=== PATIENT | female | born 1990 | race Caucasian/White ===

== ENCOUNTER 2016-09-27 15:09 | Emergency (ER) | payer OTHER ==
[2016-09-27 15:33] VITALS: BP 114/77
--- NOTE | 2016-09-27 15:58 | UC ---
Knee Pain HPI - HPI Summary HPI Summary: pt reports that she was jumping over a fence 1 week ago and landed "funny" on her right knee. C/o right latera knee pain that "shoots" down right lateral lower leg intermittently. - History of Current Complaint Chief Complaint: UCLowerExtremity Stated Complaint: RT KNEE COMPLAINT Time Seen by Provider: 09/27/16 15:36 Hx Obtained From: Patient Hx Last Menstrual Period: 09/03/16 ?: No Onset/Duration: Gradual Onset, Lasting Days - 7 Severity Initially: Mild Severity Currently: Mild Character: Sharp, Dull Aggravating Factor(s): Movement - inconsistent, Prolonged Standing Alleviating Factor(s): Rest, Position Associated Signs And Symptoms: Positive: Negative Able to Bear Weight: Yes - Allergies/Home Medications Allergies/Adverse Reactions: Allergies Allergy/AdvReac Type Severity Reaction Status Date / Time Penicillins Allergy Intermediate Hives Verified 04/09/16 17:02 Home Medications: Home Medications Ibuprofen [Ibuprofen 200 MG] 800 mg PO Q6HR PRN 09/27/16 [History Confirmed ] PMH/Surg Hx/FS Hx/Imm Hx Previously Healthy: Yes - Surgical History Surgical History: Yes Surgery Procedure, Year, and Place: essure - Family History Known Family History: Positive: Other - positive for FMH for arthralgia Family History: no known cardio-vascular issues in family - Social History Alcohol Use: None Substance Use Type: None Smoking Status (MU): Never Smoked Tobacco Have You Smoked in the Last Year: No - Immunization History Most Recent Influenza Vaccination: none Hx Tetanus, Diphtheria Vaccination: Yes Vaccination Up to Date: Yes Review of Systems Constitutional: Negative Skin: Negative Eyes: Negative ENT: Negative Respiratory: Negative Cardiovascular: Negative Gastrointestinal: Negative, Abdominal Pain Genitourinary: Negative Motor: Negative Neurovascular: Negative Musculoskeletal: Arthralgia - right knee Neurological: Negative Psychological: Negative All Other Systems Reviewed And Are Negative: Yes Physical Exam Triage Information Reviewed: Yes Appearance: Well-Appearing Vital Signs: Initial Vital Signs Temp 98.2 F 09/27/16 15:24 Pulse 82 09/27/16 15:24 Resp 16 09/27/16 15:24 BP 114/77 09/27/16 15:24 Pulse Ox 100 09/27/16 15:24 Eye Exam: Normal ENT Exam: Normal Respiratory Exam: Other Respiratory: Positive: No respiratory distress Musculoskeletal Exam: Normal Musculoskeletal: Positive: Other: - pain with palpation to right lateral knee Neurological Exam: Normal Psychological Exam: Normal Skin Exam: Normal Knee Pain Course/Dx - Differential Dx/Diagnosis Differential Diagnosis/HQI/PQRI: Sprain, Strain, Tendonitis Provider Diagnoses: right knee sprain Discharge - Discharge Plan Condition: Stable Disposition: HOME Patient Education Materials: Knee Pain (ED), Arthralgia (ED) [place] [facility] [place] [facility] [place]] Ayo King MD [Medical Doctor] - No Primary Care Phys,NOPCP [Primary Care Provider] - Additional Instructions: Please establish care with a PCP provider as soon as possible. Also, I have provided you with a referral to an orthopedic provider if your symptoms do not improve or worsen.
== END 2016-09-27 16:11 | disposition home or self-care (01) ==
LOC: UCCORT 15:09
DX: S83.91XA Sprain of unspecified site of right knee, initial encounter (principal); X58.XXXA Exposure to other specified factors, initial encounter; Y93.9 Activity, unspecified; Y92.9 Unspecified place or not applicable; Z11.4 Encounter for screening for human immunodeficiency virus [HIV]; Z88.0 Allergy status to penicillin
CPT/HCPCS: 36415; 86703; 99211; G0463

== ENCOUNTER 2017-03-27 12:47 | Emergency (ER) | payer SELFPAY ==
[2017-03-27 15:45] VITALS: BP 119/70
--- NOTE | 2017-03-27 15:51 | ED ---
Upper Extremity Pain - HPI Summary HPI Summary: last night her left hand got slammed in a window. she has tenderness in the medial dorsal hand. No wrist or finger injury. - History of Current Complaint Chief Complaint: UCUpperExtremity Stated Complaint: LEFT HAND PAIN Time Seen by Provider: 03/27/17 15:41 Hx Obtained From: Patient Hx Last Menstrual Period: 03/12/17 Mechanism Of Injury: Blunt Trauma, Direct Blow Onset/Duration: Started Hours Ago Timing: Constant, Lasting Hours Severity Initially: Moderate Severity Currently: Moderate Pain Location: Hand Character: Dull, Aching Aggravating Factor(s): Movement, Twisting, Pulling Alleviating Factor(s): Rest, Ice Associated Signs & Symptoms: Positive: Swelling. Negative: Redness, Bruising, Weakness - Allergies/Home Medications Allergies/Adverse Reactions: Allergies Allergy/AdvReac Type Severity Reaction Status Date / Time Penicillins Allergy Intermediate Hives Verified 03/27/17 15:41 Home Medications: Home Medications Ibuprofen TAB* [Advil TAB*] 800 mg PO Q6H PRN 03/27/17 [History Confirmed ] PMH/Surg Hx/FS Hx/Imm Hx Previously Healthy: Yes - Surgical History Surgery Procedure, Year, and Place: essure Infectious Disease History: No Infectious Disease History: Denies: Hx Clostridium Difficile, Hx Hepatitis, Hx Human Immunodeficiency Virus (HIV), Hx of Known/Suspected MRSA, Hx Shingles, Hx Tuberculosis, Hx Known/ Suspected VRE, Hx Known/Suspected VRSA, History Other Infectious Disease, Traveled Outside the [place] in Last 30 Days - Family History Known Family History: Positive: Other - positive for FM for arthralgia Family History: no known cardio-vascular issues in family - Social History Occupation: Employed Full-time Alcohol Use: Occasionally Substance Use Type: Reports: None Smoking Status (MU): Never Smoked Tobacco Have You Smoked in the Last Year: No Review of Systems Musculoskeletal: Other - crush injury per HPI. All Other Systems Reviewed And Are Negative: Yes Physical Exam Triage Information Reviewed: Yes Vital Signs On Initial Exam: Initial Vitals Temp Pulse Resp BP Pulse Ox 98.4 F 74 16 119/70 100 03/27/17 15:38 03/27/17 15:38 03/27/17 15:38 03/27/17 15:38 03/27/17 15:38 Vital Signs Reviewed: Yes Appearance: Positive: Well-Appearing, No Pain Distress, Well-Nourished Skin: Positive: Warm, Skin Color Reflects Adequate Perfusion, Dry Head/Face: Positive: Normal Head/Face Inspection ENT: Positive: Normal ENT inspection Neck: Positive: Supple, Nontender, No Lymphadenopathy Respiratory/Lung Sounds: Positive: Clear to Auscultation Cardiovascular: Positive: Normal Abdomen Description: Positive: Nontender Musculoskeletal: Positive: Other - left 5th metatacarpal tenderness with mild swelling no deformity or bruising. no finger or wrist tenderness. Diagnostics - Vital Signs Vital Signs Temp Pulse Resp BP Pulse Ox 03/27/17 15:38 98.4 F 74 16 119/70 100 - Laboratory Lab Statement: Any lab studies that have been ordered have been reviewed, and results considered in the medical decision making process. Course/Dx - Diagnoses Differential Diagnosis/HQI/PQRI: Positive: Contusion, Fracture (Open), Laceration, Strain, Sprain Provider Diagnoses: Contusion of left hand Discharge - Discharge Plan Condition: Good Disposition: HOME Patient Education Materials: Contusion in Adults (ED) Forms: *Work Release Referrals: No Primary Care Phys,NOPCP [Primary Care Provider] -
--- NOTE | 2017-03-27 16:46 | RAD ---
INDICATION: Left hand injury COMPARISON: None TECHNIQUE: AP, lateral, and oblique views were obtained. FINDINGS: The bony structures, joint spaces, and soft tissues are normal for age. IMPRESSION: NEGATIVE EXAMINATION.
== END 2017-03-27 17:07 | disposition home or self-care (01) ==
LOC: UCCORT 12:47
DX: S60.222A Contusion of left hand, initial encounter (principal); W23.0XXA Caught, crushed, jammed, or pinched between moving objects, initial encounter; Y92.9 Unspecified place or not applicable
CPT/HCPCS: 99212; G0463

== ENCOUNTER 2017-09-04 09:51 | Emergency (ER) | payer SELFPAY ==
[2017-09-04 11:12] VITALS: BP 124/72
--- NOTE | 2017-09-04 12:52 | UC ---
Throat Pain/Nasal Rodrick HPI - HPI Summary HPI Summary: pt states she awoke with some swelling to her R neck yesterday am. it is slighlty uncomfortable. No fever, sore throat or dental pain. - History of Current Complaint Chief Complaint: YUKIkin Stated Complaint: SKIN COMPLAINT Time Seen by Provider: 09/04/17 12:38 Hx Obtained From: Patient Hx Last Menstrual Period: 08/13/17 ?: No Onset/Duration: Sudden Onset Pain Intensity: 5 Associated Signs & Symptoms: Negative: Dysphagia, FB Sensation, Drooling, Fever - Epiglottits Risk Factors Epiglottis Risk Factors: Negative - Allergies/Home Medications Allergies/Adverse Reactions: Allergies Allergy/AdvReac Type Severity Reaction Status Date / Time Penicillins Allergy Hives Verified 09/04/17 11:04 PMH/Surg Hx/FS Hx/Imm Hx - Additional Past Medical History Additional PMH: Healthy Previously Healthy: Yes - Surgical History Surgical History: Yes Surgery Procedure, Year, and Place: essure - Family History Known Family History: Positive: Other - positive for FM for arthralgia Family History: no known cardio-vascular issues in family - Social History Lives: With Family Alcohol Use: Occasionally Substance Use Type: None Smoking Status (MU): Never Smoked Tobacco Have You Smoked in the Last Year: No - Immunization History Most Recent Influenza Vaccination: Not the 2016/2017 Season Hx Tetanus, Diphtheria Vaccination: Yes Vaccination Up to Date: Yes Review of Systems Constitutional: Negative Skin: Negative Eyes: Negative ENT: Other - swelling R neck Respiratory: Negative Cardiovascular: Negative Gastrointestinal: Negative Genitourinary: Negative Motor: Negative Neurovascular: Negative Musculoskeletal: Negative Neurological: Negative Psychological: Negative Is Patient Immunocompromised?: No All Other Systems Reviewed And Are Negative: Yes Physical Exam Triage Information Reviewed: Yes Appearance: Well-Appearing Vital Signs: Initial Vital Signs Temp 97.9 F 09/04/17 11:05 Pulse 69 09/04/17 11:05 Resp 18 09/04/17 11:05 BP 124/72 09/04/17 11:05 Pulse Ox 98 09/04/17 11:05 Vital Signs Reviewed: Yes Eyes: Positive: Conjunctiva Clear ENT: Positive: Pharynx normal, TMs normal, Other - R submandibular area with mild swelling, corresponding salivary gland is tender and swollen-no overt stone palpated.. Negative: Nasal congestion, Nasal drainage Dental: Positive: Gross Decay/Caries @. Negative: Abscess @ Neck: Positive: Supple, Nontender, No Lymphadenopathy Respiratory: Positive: Lungs clear, Normal breath sounds Cardiovascular: Positive: RRR, No Murmur Abdomen Description: Positive: Nontender, No Organomegaly, Soft Bowel Sounds: Positive: Present Musculoskeletal: Positive: No Edema Neurological: Positive: Alert Psychological: Positive: Normal Response To Family, Age Appropriate Behavior Skin Exam: Normal Throat Pain/Nasal Course/Dx - Course Course Of Treatment: exam c/w R submandibular sialoadenitis. will tx clindamycin since pcn allergic and ent f/u. pt advised will give referal to Dr Cortez, she declined citing they use Dr Kevin and she wants to go there. No ludwigs angina. - Differential Dx/Diagnosis Provider Diagnoses: R submandibular sialoadenitis Discharge - Discharge Plan Condition: Stable Disposition: HOME Prescriptions: Clindamycin Cap(NF) [Clindamycin Cap 300 mg Cap(NF)] 300 mg PO TID 10 Days #30 cap Patient Education Materials: Sialoadenitis (ED) Referrals: Juan Manuel Kevin MD [Medical Doctor] - 2 Days
== END 2017-09-04 13:00 | disposition home or self-care (01) ==
LOC: UCCORT 09:51
DX: K11.20 Sialoadenitis, unspecified (principal); Z88.0 Allergy status to penicillin
CPT/HCPCS: 99211; G0463

== ENCOUNTER 2017-10-26 17:59 | Emergency (ER) | payer OTHER ==
[2017-10-26 18:36] VITALS: BP 125/74
--- NOTE | 2017-10-26 19:09 | UC ---
Upper Extremity HPI - HPI Summary HPI Summary: States she has been feeling tingling and numbness on right wrist and all fingers for several days, she works in [employer] and lifts weights every day. Denies sprain, fall or any trauma she can remember. Numbness is worse upon awakening and when she flexes right hand, sometimes with shooting pain. Pain decreases as she changes posture. Denies shoulder or elbow pain. - History of Current Complaint Chief Complaint: UCUpperExtremity Stated Complaint: RIGHT WRIST/HAND NUMBNESS/TINGLING Time Seen by Provider: 10/26/17 18:44 Hx Obtained From: Patient Hx Last Menstrual Period: essure ?: No Onset/Duration: Gradual Onset, Lasting Days Severity Initially: Moderate Severity Currently: Moderate Pain Intensity: 5 Location Of Pain: Is Discrete @ - right wrist Character: Sharp Aggravating Factor(s): Movement, Flexion Alleviating Factor(s): Rest Associated Signs And Symptoms: Positive: Negative - Risk Factors Non-Orthopedic Risk Factor: Negative DVT Risk Factors: Negative Septic Arthritis Risk Factor: Negative Compartment Syndrome Risk Factors: Paresthesias - Allergies/Home Medications Allergies/Adverse Reactions: Allergies Allergy/AdvReac Type Severity Reaction Status Date / Time Penicillins Allergy Hives Verified 10/26/17 18:37 PMH/Surg Hx/FS Hx/Imm Hx Previously Healthy: Yes - Surgical History Surgical History: Yes [facility] - Family History Known Family History: Positive: Other - positive for FMH for arthralgia Family History: no known cardio-vascular issues in family - Social History Alcohol Use: Occasionally Substance Use Type: None Smoking Status (MU): Never Smoked Tobacco Have You Smoked in the Last Year: No - Immunization History Most Recent Influenza Vaccination: Not the 2016/2017 Season Hx Tetanus, Diphtheria Vaccination: Yes Vaccination Up to Date: Yes Review of Systems Constitutional: Negative Musculoskeletal: Arthralgia All Other Systems Reviewed And Are Negative: Yes Physical Exam Triage Information Reviewed: Yes Appearance: Well-Appearing, No Pain Distress, Well-Nourished Vital Signs: Initial Vital Signs Temp 97.6 F 10/26/17 18:33 Pulse 65 10/26/17 18:33 Resp 16 10/26/17 18:33 BP 125/74 10/26/17 18:33 Pulse Ox 100 10/26/17 18:33 Vital Signs Reviewed: Yes Eyes: Positive: Conjunctiva Clear ENT: Positive: Hearing grossly normal Neck: Positive: Supple, Nontender Respiratory: Positive: Chest non-tender Cardiovascular: Positive: Pulses Normal, Brisk Capillary Refill Musculoskeletal: Positive: Strength Intact, ROM Intact, No Edema, Other: - ulnar and radial pulses present, capillary refill less 2 sec, no distal edema. Tinel positive. Phalen positive. Upper Extremity Course/Dx - Course Course Of Treatment: start wrist splint and gabapentin as prescribed. Continue ibuprofen as needed. Referral to hand ortho. F/u PCP - Differential Dx/Diagnosis Provider Diagnoses: carpal tunnel syndrome right hand Discharge - Sign-Out/Discharge Documenting (check all that apply): Discharge - Discharge Plan Condition: Stable Disposition: HOME Prescriptions: Gabapentin CAP(*) [Neurontin 100 mg CAP(*)] 100 mg PO TID #30 cap Patient Education Materials: Gabapentin (By mouth), Paresthesia (ED) Forms: *Work Release Referrals: [facility] – [place] [place] [facility]FERR[facility] [Outside] Ayo King MD [Medical Doctor] - No Primary Care Phys,NOPCP [Primary Care Provider] - Additional Instructions: wear wrist splint every night, continue ibuprofen and gabapentin as prescribed. F.u with PCP - Billing Disposition and Condition Condition: STABLE Disposition: HOME
== END 2017-10-26 19:09 | disposition home or self-care (01) ==
LOC: UCCORT 17:59
DX: G56.01 Carpal tunnel syndrome, right upper limb (principal); Z88.0 Allergy status to penicillin
CPT/HCPCS: 99213; G0463

== ENCOUNTER 2018-07-01 07:55 | Day surgery (SDC) | payer OTHER ==
--- NOTE | 2018-06-23 03:04 | HP ---
PREOPERATIVE HISTORY AND PHYSICAL: DATE OF ADMISSION: 07/01/18. DATE OF OFFICE VISIT/ENCOUNTER: 06/12/18. ATTENDING SURGEON: Bee Gifford MD. * (DICTATED BY MAYCO GALAVIZ) PROCEDURE: Right wrist carpal tunnel release. CHIEF COMPLAINT: Numbness and tingling, right hand. HISTORY OF PRESENT ILLNESS: This is a 27-year-old female, who has had numbness and tingling in her right hand since October of 2017. 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 She had a nerve conduction study that was negative for any nerve compression, but clinically she presents with carpal tunnel syndrome. She has pain and numbness and tingling in the median nerve distribution. She was given a wrist brace and also has had a cortisone injection for this problem; however, her symptoms persist. She has now consented to proceed with surgical intervention for this problem. PAST MEDICAL HISTORY: Unremarkable. PAST SURGICAL HISTORY: Essure placement. CURRENT MEDICATIONS: None. ALLERGIES: PENICILLIN causes hives. FAMILY MEDICAL HISTORY: Rheumatoid arthritis. 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 She is a current smoker. She smokes a pack every 1 to 2 days and has done so for the past 3 months. She denies recreational drug use. She drinks alcohol on special occasion. REVIEW OF SYSTEMS: Negative for general, cephalic, cardiovascular, respiratory , GI, , other musculoskeletal, integumentary, endocrine, neurologic, and hematologic symptoms. Infectious disease is negative for history of MRSA, hepatitis C, HIV. PHYSICAL EXAMINATION GENERAL: Well-developed, well-nourished, 27-year-old female, in no acute distress. VITAL SIGNS: Height 5 feet 7 inches, weight 192 pounds, pulse rate 86, blood pressure 122/80. HEENT: Normocephalic, atraumatic. Pupils are equal, round, and reactive to light and accommodation. Extraocular movements are intact. Throat is clear. NECK: Supple. No palpable lymph nodes. PULMONARY: Lungs are clear to auscultation bilaterally. No wheezes, rales or rhonchi. CARDIOVASCULAR: Regular rate and rhythm. S1, S2. No murmurs, rubs or gallops. No edema. ABDOMEN: Positive bowel sounds, soft, nontender. NEUROLOGIC: Alert and oriented x3. Cranial nerves II through XII are intact. MUSCULOSKELETAL: On exam of her right hand, there is no visible swelling, deformity or atrophy of any musculature. She has some tenderness to palpation in the volar aspect of the wrist. She has a positive Tinel's at the wrist on the right, negative Tinel's at the elbow. She reports some slight decreased sensation to light touch in the median nerve distribution, right hand. EMG nerve conduction study test negative for any nerve compression. IMPRESSION: Clinical presentation of right carpal tunnel syndrome. PLAN/RECOMMENDATIONS: The patient is scheduled to undergo a right wrist carpal tunnel release with Dr. Gifford on 07/01/18. She will return to the office 10 days postop for followup and suture removal. A prescription for Ultracet was e- scribed to the patient's pharmacy for postoperative pain management. MAYCO GALAVIZ [id number]/[facility] #: [id number] PENNY
[~2018-07-01 07:55] MED LIST: Buffered Lidocaine 0.9% SYRIN* 5 ML/SYR SYRINGE INTRADERM ONE; Lactated Ringers 1000 ML Bag* 1,000 ML IV SCH; Lidocaine 1% INJ* 10 MG/ML 30 ML SDV ONE; Naloxone* 0.4 MG/ML 1 ML VIAL IV PRN
[2018-07-01] MEDS ORDERED: fentaNYL* 50 MCG/ML 2 ML VIAL (100 MCG VIAL) ONE (08:50)
[2018-07-01] MEDS ORDERED: Propofol* 10 MG/ML 20 ML BTL ONE (08:51)
[2018-07-01] MEDS ORDERED: Lidocaine 2% PF * 5 ML VIAL ONE (08:51)
[2018-07-01] MEDS ORDERED: traMADol TAB* 50 MG ONE (09:41)
[2018-07-01] MEDS ORDERED: Ibuprofen TAB* 600 MG ONE (09:42)
[2018-07-01 09:47] VITALS: BP 129/70
--- NOTE | 2018-07-01 13:51 | OP ---
DATE OF OPERATION: 07/01/18 [facility] DATE OF : 89 SURGEON: Bee Gifford MD SUPERVISOR CUTTING DEPARTMENT: MAYCO Fajardo. ANESTHESIA: Local MAC. PRE-OP DIAGNOSIS: Right carpal tunnel syndrome. POST-OP DIAGNOSIS: Right carpal tunnel syndrome. OPERATIVE PROCEDURE: Right carpal tunnel release. ESTIMATED BLOOD LOSS: Zero. TOURNIQUET TIME: Approximately 5 minutes. INDICATIONS FOR PROCEDURE: Marlena is a 27-year-old female with numbness and tingling in the median nerve distribution of her right hand. She presents for right carpal tunnel release. DESCRIPTION OF PROCEDURE: The patient was brought to the operating room, was given a sedation anesthetic and a local infiltration with 10 cc of 1% plain lidocaine in the palm of her right hand. The skin of her right hand and forearm was prepped and draped in the usual sterile fashion. The hand and forearm were exsanguinated and the tourniquet elevated to 250 mmHg. A longitudinal incision was made in the palm in line with the ring finger. We dissected through the subcutaneous tissue down to the transverse carpal ligament. The ligament was divided sharply with the knife and then more proximally with the scissors. The nerve was dissected free from the surrounding tissue and there was an area of moderate compression at the mid portion of the ligament. The wound was irrigated and the skin edges were reapproximated with 4-0 nylon suture. The wound was dressed with Xeroform, 4x4 , Webril and an Tereso wrap. The patient tolerated the procedure well and was brought to the recovery room in good condition. [id number]/[facility] #: [id number] [facility]
== END 2018-07-01 09:53 | disposition home or self-care (01) ==
LOC: OREAST 07:55
PROVIDERS: ATTEND Orthopaedic Surgery
DX: G56.01 Carpal tunnel syndrome, right upper limb (principal); Z72.0 Tobacco use
CPT/HCPCS: 81025; A9270-GY; J2704; J3010

== ENCOUNTER 2019-02-12 09:36 | Emergency (ER) | payer OTHER ==
[2019-02-12 10:02] VITALS: BP 112/70
--- NOTE | 2019-02-12 10:27 | UC ---
Knee Pain HPI - HPI Summary HPI Summary: 28 yo female with right knee pain x 2 weeks It has been locking up and she needs to forcefully extend it It has been "popping" It has been buckling denies any hx of prior LBP - History of Current Complaint Chief Complaint: UCLowerExtremity Stated Complaint: RIGHT KNEE PAIN Time Seen by Provider: 02/12/19 10:20 Hx Obtained From: Patient Hx Last Menstrual Period: 01/21/19 Onset/Duration: Gradual Onset, Lasting Weeks Severity Initially: Mild Severity Currently: Moderate Pain Intensity: 7 Pain Scale Used: 0-10 Numeric Character: Sharp, Aching Aggravating Factor(s): Movement, Weight Bearing Alleviating Factor(s): Rest Associated Signs And Symptoms: Positive: Negative Able to Bear Weight: Yes - Allergies/Home Medications Allergies/Adverse Reactions: Allergies Allergy/AdvReac Type Severity Reaction Status Date / Time Penicillins Allergy Hives Verified 02/12/19 09:57 1 FOOD ALLERGY UNSURE OF NAME Allergy Hives Uncoded 02/12/19 09:57 Home Medications: Home Medications NK [No Home Medications Reported] 02/12/19 [History Confirmed 02/12/19] PMH/Surg Hx/FS Hx/Imm Hx Previously Healthy: Yes - Surgical History Surgical History: Yes Surgery Procedure, Year, and Place: [facility]. CTS for right hand - Family History Known Family History: Positive: Other - positive for FMH for arthralgia, Non- Contributory Family History: no known cardio-vascular issues in family - Social History Alcohol Use: Occasionally Substance Use Type: None Smoking Status (MU): Heavy Every Day Tobacco Smoker Amount Used/How Often: 1 PACK PER 2-3 DAYS Have You Smoked in the Last Year: Yes - Immunization History Most Recent Influenza Vaccination: Not the 2017/2017 Season Hx Tetanus, Diphtheria Vaccination: Yes Vaccination Up to Date: Yes Review of Systems All Other Systems Reviewed And Are Negative: Yes Constitutional: Positive: Negative Skin: Positive: Negative Eyes: Positive: Negative ENT: Positive: Negative Respiratory: Positive: Negative Cardiovascular: Positive: Negative Gastrointestinal: Positive: Negative Genitourinary: Positive: Negative Motor: Positive: Negative Neurovascular: Positive: Negative Musculoskeletal: Positive: Arthralgia - right knee Neurological: Positive: Negative Psychological: Positive: Negative Physical Exam Triage Information Reviewed: Yes Appearance: Well-Appearing, No Pain Distress, Well-Nourished Vital Signs: Initial Vital Signs Temp 98.0 F 02/12/19 09:58 Pulse 74 02/12/19 09:58 Resp 15 02/12/19 09:58 BP 112/70 02/12/19 09:58 Pulse Ox 100 02/12/19 09:58 Vital Signs Reviewed: Yes Eyes: Positive: Conjunctiva Clear ENT: Positive: Hearing grossly normal. Negative: Nasal congestion, Nasal drainage, Trismus, Muffled voice, Hoarse voice Neck: Positive: Supple, Nontender Respiratory: Positive: Lungs clear, Normal breath sounds, No respiratory distress Cardiovascular: Positive: RRR, No Murmur Musculoskeletal: Positive: ROM Intact - right knee, No Edema, Other: - Right knee- FROM, + crepitus, mild patellar grind test, stable joint, no effusion Neurological: Positive: Alert Psychological Exam: Normal Skin Exam: Normal Diagnostics - Radiology No standard instances Radiology Interpretation Completed By: Radiologist Summary of Radiographic Findings: no fx Knee Pain Course/Dx - Differential Dx/Diagnosis Provider Diagnosis: Tear of meniscus of right knee Discharge - Sign-Out/Discharge Documenting (check all that apply): Patient Departure All imaging exams completed and their final reports reviewed: Yes - Discharge Plan Condition: Stable Disposition: AGAINST MEDICAL ADVICE Patient Education Materials: Meniscus Tear (ED), Knee Immobilizer (ED) Forms: *Gen. Provider Communication Referrals: Ayo King MD [Medical Doctor] - As Soon As Possible Additional Instructions: your xr was normal I am concerned you may have torn some cartilage in your knee ice twice daily advil or aleve - Billing Disposition and Condition Condition: STABLE Disposition: Against Medical Advice
== END 2019-02-12 11:21 | disposition home or self-care (01) ==
LOC: UCCORT 09:36
DX: S83.206A Unspecified tear of unspecified meniscus, current injury, right knee, initial encounter (principal); X58.XXXA Exposure to other specified factors, initial encounter; Y92.9 Unspecified place or not applicable; F17.210 Nicotine dependence, cigarettes, uncomplicated
CPT/HCPCS: 99212; G0463

== ENCOUNTER 2019-03-18 10:25 | Emergency (ER) | payer OTHER ==
--- OUTSIDE RECORDS SUMMARY | 2019-03-18 10:32 | XMS REPORT | Continuity of Care Document ---
:1990 External Reference #:[id number] Demographics Address [address] [place] [address] Home Phone [phone] Mobile Phone [phone] Email Address Preferred Language en Marital Status Not or Sikh Affiliation Unknown Race White Ethnic Group Not or Author Name Prema Gallegos NP Address [address] [place] [id number] Care Team Providers Name Role Phone No Care Team Information Banking Paralegal Unavailable Problems Description No Active Problems Social History Type Date Description Comments Sex Female Tobacco Use Reviewed: 02/17/19 Never Smoked Cigars Tobacco Use Reviewed: 02/17/19 Never Smoked A Pipe Smoking Status Reviewed: 02/17/19 Never Smoked A Pipe Tobacco Use Reviewed: 02/17/19 Never Used Smokeless Tobacco ETOH Use Currently consumes alcohol Recreational Drug Use Denies Drug Use Tobacco Use Reviewed: 02/17/19 Light tobacco smoker (10 or fewer cigarettes/day) Recreational Drug Use Teaching provided regarding Naloxone/Narcan Training Available At [facility] Tattoo/Piercing Tattoo [place] Allergies, Adverse Reactions, Alerts Active Allergies Reaction Severity Comments Date Penicillin 07/23/2017 Medications Active Medications SIG Qnty Indications Ordering Provider Date Flagyl four tabs by 4tabs A59.01 Prema Gallegos NP 02/17/2019 500mg Tablets mouth x 1 dose History Medications No Active Medications Unknown 02/17/2019 - 02/17/2019 Medications Administered in Office Medication SIG Qnty Indications Ordering Provider Date J-Azithromycin, 500MG, Qnty 2 Prema Gallegos NP 02/20/2018 Injection J-Azithromycin, 500MG, Qnty 2 Prema Gallegos NP 07/23/2017 Injection Immunizations Description No Information Available Vital Signs Date Vital Result Comment 02/17/2019 10:08am BP Systolic 112 mmHg BP Diastolic 72 mmHg Height 67 inches 5'7" Weight 197.00 lb BMI (Body Mass Index) 30.9 kg/m2 02/20/2018 10:41am BP Systolic 118 mmHg BP Diastolic 76 mmHg Height 67 inches 5'7" Weight 199.00 lb BMI (Body Mass Index) 31.2 kg/m2 Results Test Date Facility Test Result H/L Range Note Wet Prep.... 02/17/2019 [facility] WBC Smear many Clue Cells Vag Fluid Wet Prep 0 [place] Wet Prep 0 Lactobacillus Wet Prep few Whiff Wet Prep neg. Bacteria Wet Prep n/a PH Wet Prep 7.5 Misc Other Test no trich seen Laboratory test finding 02/17/2019 [facility] Hep C Rapid Test Nonreactive Laboratory test finding 02/17/2019 [facility] HIV Rapid... 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 mode of transmiss Z11.4 Encounter for screening for human immunodeficiency virus Z11.59 Encounter for screening for other viral diseases A59.01 Trichomonal vulvovaginitis Assessments Date Code Description Provider 02/17/2019 Z11.3 Encounter for screening for infections with a Prema Gallegos NP predominantly sexual mode of transmission 02/17/2019 Z11.4 Encounter for screening for human Prema Gallegos NP immunodeficiency virus [HIV] 02/17/2019 Z11.59 Encounter for screening for other viral diseases Prema Gallegos NP 02/17/2019 A59.01 Trichomonal vulvovaginitis Prema Gallegos NP Plan of Treatment 02/17/2019 - Prema Gallegos NPZ11.3 Encounter for screening for infections with a predominantly sexual mode of transmissionComments:Reviewed STD risks and prevention with patient. Patient states understanding. Condoms given to patient.Z11.4 Encounter for screening for human immunodeficiency virus [HIV] Z11.59 Encounter for screening for other viral wzdhjqulS55.01 Trichomonal vulvovaginitisNew Medication:Flagyl 500 mg - four tabs by mouth x 1 doseComments :Wet mount shows motile trichomonas. Reviewed natural course, treatment, transmission and prevention with patient who states understanding. Rx Metronidazole- reviewed use of, side effects and precautions of use with patient who states understanding. Abstain from ic for at least one week after you and partners are treated. Use condoms consistently to prevent STDs.Follow up :prn Functional Status Description No Information Available Mental Status Description No Information Available Referrals Description No Information Available
--- OUTSIDE RECORDS SUMMARY | 2019-03-18 10:32 | XMS REPORT | Continuity of Care Document ---
:1990 External Reference #:[id number] Demographics Address [address] [place] [address] Mobile Phone [phone] Email Address Preferred Language en Marital Status Not or Sikh Affiliation Unknown Race White Ethnic Group Not or Author Name Reyes Barth Care Team Providers Name Role Phone Patient's Choice Primary Care Physician Unavailable Payers Date Identification Numbers Payment Provider Subscriber Policy Number: [id number] Yrn Diaz Group Number: [id number] [address] Group Name: Medicaid [place] [address] PayID: [id number] Onset: 2017 Policy Number: [id number] Ryan Marlena Diaz Group Name: [phone] Fax [address] [address] PayID: [id number] [address] Family History Date Family Member(s) Observation Comments General Rheumatoid Arthritis Social History Type Date Description Comments Sex Unknown Marital Status Single Lives With Children Occupation Unemployed ETOH Use Occasionally consumes alcohol Tobacco Use Start: Unknown Patient is a current smoker, smokes every day Smoking Status Reviewed: 09/05/18 Patient is a current smoker, smokes every day Exercise Type/Frequency Exercises sporadically Allergies, Adverse Reactions, Alerts Active Allergies Reaction Severity Comments Date Penicillins 10/30/2017 Medications Active Medications SIG Qnty Indications Ordering Provider Date No Active Medications Unknown 08/14/2018 History Medications Ultracet 1 tab by mouth 15tabs Bee Gifford, 06/22/2018 - 37.5-325mg Tablets every 4-6 M.D. 08/13/2018 hours as needed pain No Active Medications Unknown 12/23/2017 - 06/22/2018 Methylprednisolone take as 21units Bee Gifford, 10/30/2017 - 4mg TBPK directed. M.D. 12/22/2017 Gabapentin Unknown - 100mg Capsules 12/22/2017 Medications Administered in Office Medication SIG Qnty Indications Ordering Provider Date Depomedrol 40MG Bee Gifford M.D. 12/23/2017 Injection Depomedrol 40MG Bee Gifford M.D. 12/23/2017 Injection Vital Signs Date Vital Result Comment 02/16/2019 3:01pm Height 67 inches 5'7" Weight 200.00 lb Heart Rate 84 /min BP Systolic Sitting 116 mmHg BP Diastolic Sitting 86 mmHg Respiratory Rate 16 /min Body Temperature 100.0 F Pain Level 7 O2 % BldC Oximetry 99 % BMI (Body Mass Index) 31.3 kg/m2 09/05/2018 11:05am Height 67 inches 5'7" Weight 192.00 lb Heart Rate 74 /min BP Systolic Sitting 142 mmHg BP Diastolic Sitting 80 mmHg Pain Level 9 BMI (Body Mass Index) 30.1 kg/m2 08/14/2018 1:29pm Height 67 inches 5'7" Weight 192.00 lb Heart Rate 82 /min Respiratory Rate 16 /min Body Temperature 98.1 F Pain Level 3 BMI (Body Mass Index) 30.1 kg/m2 07/16/2018 10:21am Height 67 inches 5'7" Heart Rate 76 /min BP Systolic Sitting 126 mmHg BP Diastolic Sitting 90 mmHg Respiratory Rate 16 /min Body Temperature 98.9 F Pain Level 4 06/12/2018 1:17pm Height 67 inches 5'7" Heart Rate 86 /min BP Systolic 122 mmHg BP Diastolic 80 mmHg Respiratory Rate 17 /min Pain Level 8 01/22/2018 2:37pm Height 67 inches 5'7" Weight 192.00 lb Heart Rate 72 /min BP Systolic 108 mmHg BP Diastolic 60 mmHg Respiratory Rate 12 /min Body Temperature 98.9 F Pain Level 0 BMI (Body Mass Index) 30.1 kg/m2 12/23/2017 10:47am Height 67 inches 5'7" Weight 200.00 lb BP Systolic 124 mmHg BP Diastolic 76 mmHg Respiratory Rate 17 /min Pain Level 6 BMI (Body Mass Index) 31.3 kg/m2 11/20/2017 9:26am Height 67 inches 5'7" Heart Rate 61 /min BP Systolic 128 mmHg BP Diastolic 80 mmHg Respiratory Rate 16 /min Body Temperature 97.8 F Pain Level 5 10/30/2017 9:16am Height 67 inches 5'7" Weight 198.00 lb Heart Rate 68 /min BP Systolic 122 mmHg BP Diastolic 68 mmHg Respiratory Rate 12 /min Body Temperature 97.6 F Pain Level 3 BMI (Body Mass Index) 31.0 kg/m2 Procedures Date Code Description Status 09/05/2018 00847 Rad Exam; Wrist, Comp, Min 3 Views Completed 07/01/2018 73774 Carpal Tunnel Release Completed 07/01/2018 49064 Carpal Tunnel Release Completed 12/23/2017 18535 Injection, Carpal Tunnel Completed Encounters Type Date Location Provider Dx Diagnosis Office Visit 02/16/2019 Orthopedic López Mccollum, M22.2x1 Patellofemoral 3:00p [facility] MD disorders, right AT [place] knee Office Visit 06/12/2018 Orthopedic Bee Gifford G56.01 Carpal tunnel 1:15p [facility] syndrome, right C.M.A. upper limb Office Visit 01/22/2018 Maylin Gifford G56.01 Carpal tunnel 2:30p [facility] syndrome, right C.M.A. upper limb M65.831 Other synovitis and tenosynovitis, right forearm Office Visit 12/23/2017 10:45a Orthopedic Bee Gifford G56.01 Carpal tunnel [facility] syndrome, right C.M.A. upper limb M65.831 Other synovitis and tenosynovitis, right forearm Office Visit 11/20/2017 9:15a Orthopedic Bee Gifford G56.01 Carpal tunnel [facility] syndrome, right C.M.A. upper limb G56.01 Carpal tunnel syndrome, right upper limb M65.831 Other synovitis and tenosynovitis, right forearm M65.831 Other synovitis and tenosynovitis, right forearm G56.01 Carpal tunnel syndrome, right upper limb M65.831 Other synovitis and tenosynovitis, right forearm Plan of Treatment Future Appointment(s):04/20/2019 9:15 am - López Mccollum MD at [facility] AT [place]/05/2019 - López Mccollum, MDM22.2x1 Patellofemoral disorders, right kneeNew Therapy:Physical TherapyComments:use braceFollow up:Follow up: 2 months
[2019-03-18 10:38] VITALS: BP 122/72
--- NOTE | 2019-03-18 10:52 | UC ---
Throat Pain/Nasal Rodrick HPI - HPI Summary HPI Summary: sore throat x 2 days pain is 5 out of 10 , no cold symptoms no cough , no runny nose, no fever , no chills left side ear pain and painful lymphnode - History of Current Complaint Chief Complaint: UCEar Stated Complaint: LEFT EAR PAIN Time Seen by Provider: 03/18/19 10:30 Hx Obtained From: Patient Hx Last Menstrual Period: 02/19/19 ?: No Onset/Duration: Gradual Onset, Lasting Days - 2, Still Present Severity: Moderate Pain Intensity: 10 Cough: None Associated Signs & Symptoms: Negative: FB Sensation, Drooling, Wheezing, Hoarseness, Sinus Discomfort, Nasal Discharge, Fever, Vomiting, Rash - Allergies/Home Medications Allergies/Adverse Reactions: Allergies Allergy/AdvReac Type Severity Reaction Status Date / Time Penicillins Allergy Hives Verified 03/18/19 10:38 1 FOOD ALLERGY UNSURE OF NAME Allergy Hives Uncoded 03/18/19 10:38 Home Medications: Home Medications Acetaminophen [Tylenol Extra Strength] 3 tab PO ONCE 03/18/19 [History Confirmed 03/18/19] PMH/Surg Hx/FS Hx/Imm Hx Previously Healthy: Yes - Surgical History Surgical History: Yes Surgery Procedure, Year, and Place: [facility]. CTS for right hand - Family History Known Family History: Positive: Other - positive for [facility] for arthralgia, Non- Contributory Family History: no known cardio-vascular issues in family - Social History Alcohol Use: Occasionally Substance Use Type: Marijuana Substance Use Comment - Amount & Last Used: occasional Smoking Status (MU): Heavy Every Day Tobacco Smoker Amount Used/How Often: 1/2 ppd Have You Smoked in the Last Year: Yes - Immunization History Most Recent Influenza Vaccination: Not the 2017/2017 Season Hx Tetanus, Diphtheria Vaccination: Yes Vaccination Up to Date: Yes Review of Systems All Other Systems Reviewed And Are Negative: Yes Constitutional: Positive: Negative Skin: Positive: Negative Eyes: Positive: Negative ENT: Positive: Sore Throat, Ear Ache Respiratory: Positive: Negative Is Patient Immunocompromised?: No Physical Exam Triage Information Reviewed: Yes Appearance: Well-Appearing, No Pain Distress, Well-Nourished Vital Signs: Initial Vital Signs Temp 98.7 F 03/18/19 10:32 Pulse 73 03/18/19 10:32 Resp 16 03/18/19 10:32 BP 122/72 03/18/19 10:32 Pulse Ox 100 03/18/19 10:32 Vital Signs Reviewed: Yes Eye Exam: Normal Eyes: Positive: Conjunctiva Clear ENT: Positive: Normal ENT inspection, Hearing grossly normal, Pharyngeal erythema, TMs normal. Negative: TM bulging, TM dull, TM red Neck: Positive: Supple, Tenderness @, Enlarged Nodes @ - left anterior cervical Respiratory Exam: Normal Respiratory: Positive: Chest non-tender, Lungs clear, Normal breath sounds Cardiovascular: Positive: RRR, No Murmur, Pulses Normal Skin Exam: Normal Throat Pain/Nasal Course/Dx - Differential Dx/Diagnosis Provider Diagnosis: Pharyngitis Discharge ED - Sign-Out/Discharge Documenting (check all that apply): Patient Departure All imaging exams completed and their final reports reviewed: No Studies - Discharge Plan Condition: Stable Disposition: HOME Prescriptions: Naproxen [Naprosyn 500 mg tab] 500 mg PO BID #20 tablet Patient Education Materials: Pharyngitis (ED) Referrals: Shon Winston MD [Primary Care Provider] - If Needed - Billing Disposition and Condition Condition: STABLE Disposition: Home
== END 2019-03-18 10:53 | disposition home or self-care (01) ==
LOC: UCCORT 10:25
DX: J02.9 Acute pharyngitis, unspecified (principal); Z88.0 Allergy status to penicillin; F17.210 Nicotine dependence, cigarettes, uncomplicated
CPT/HCPCS: 99212; G0463

== ENCOUNTER → 2019-07-14 07:07 | Day surgery (SDC) | payer MEDICAID ==
[~2019-07-14 07:07] MED LIST changes: -Buffered Lidocaine 0.9% SYRIN* 5 ML/SYR SYRINGE INTRADERM ONE; +Buffered Lidocaine 1% SYRIN* 1 ML/SYRINGE INTRADERM ONE; +Bupivacaine 0.25% SDV* 30 ML ONE; +Clindamycin 900 MG/D5W BAG(*) 900 MG/50 ML BAG IVPB ONE; +DiMENhydriNATE IV* 50 MG/ML VIAL IV PUSH PRN; +HYDROmorphone INJ1* 1 MG/ML SYRINGE IV PRN; +Ketorolac INJ* 30 MG/ML 1 ML VIAL ONE; -Lidocaine 1% INJ* 10 MG/ML 30 ML SDV ONE; +Midazolam* 1 MG/ML 5 ML VIAL (5 MG) ONE; +Ondansetron INJ* 2 MG/ML VIAL IV PRN; +fentaNYL* 50 MCG/ML 2 ML VIAL (100 MCG VIAL) IV PRN; +fentaNYL* 50 MCG/ML 2 ML VIAL (100 MCG VIAL) ONE; +oxyCODONE/Acetamin 5/325 MG* TAB ONE; +oxyCODONE/Acetamin 5/325 MG* TAB PO PRN
--- NOTE | 2019-07-14 10:52 | OP ---
Operative Report - Blank - Operative Report Date of Operation: 07/14/19 Note: PATIENT: Marlena Diaz DATE OF : 1990 DATE OF SURGERY: 07/14/2019 SURGEON: Camilo Jerry MD FINANCIAL SUPERVISOR: MAYCO Becker, whos assistance was necessary for positioning, retraction, help with instrumentation, and closure. ANESTHESIOLOGIST: Dr. 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 SPECIMENS: None ESTIMATED BLOOD LOSS: minimal COMPLICATIONS: none STATUS: Stable from the operating room to the recovery room and then home. INDICATIONS FOR PROCEDURE: Marlena has had persistent anterior knee pain and snapping despite nonoperative treatment. Both operative and non operative treatment alternatives were reviewed. Further, the nature and risks of surgery were reviewed in careful detail, in the office as well as the pre-operative holding area. Our discussions regarding the risks of surgery included, but were not limited to, infection, wound problems, nerve injury, neuroma, RSD, persistent symptoms, blood clot, failure of the surgery, need for further surgery, and even the remote chance of catastrophic complication. DESCRIPTION OF PROCEDURE: The patient was seen in the preoperative holding unit and informed written consent was obtained. The appropriate extremity was marked. The patient was then brought to the operating room and carefully positioned on the operating room table. Anesthesia was induced. All bony prominences were padded with great care. A well-padded thigh tourniquet was placed. A chlorhexidine based pre- scrub was performed followed by a chloraprep prep and drape in standard sterile fashion. A surgical safety pause was then conducted in which we confirmed the appropriate patient, extremity, planned procedure, availability of equipment, indication and administration of prophylactic antibiotics, and DVT prophylaxis in the form of a compression boot on the non-surgical extremity. I began with an Esmarch exsanguination of the limb and inflated the tourniquet. I insufflated the joint by injecting sterile saline. I began by making a standard anterolateral knee arthroscopy portal. The arthroscope was inserted into the knee joint and a diagnostic arthroscopy was performed. The cartilage looked good throughout the joint. ACL and PCL were intact. No meniscus tears were seen. She did have an anterior plica crossing the patellofemoral joint and causing some chondromalacia at both the medial patella and medial trochlea. Then under direct visualization an anteromedial arthroscopy portal was made. A biter and oscillating shaver were used to debride the plica and surrounding synovitis. I then performed an extensive irrigation of the joint while running the shaver in each of the knee compartments to remove any loose debris. I then ranged the knee under direct arthroscopic visualization and there was no longer any impingement from the plica. Once thoroughly irrigated and debrided, I suctioned the fluid out of the joint. The arthroscopy portals were then closed utilizing 3-0 nylon. A sterile dressing was then applied. The patient was then awakened from anesthesia and transferred to the recovery room in stable condition. There were no complications. All needle and sponge counts were correct at the end of the case. ATTESTATION: I attest I was present and scrubbed and performed the critical portions of the procedure myself. POSTOPERATIVE PLAN: The plan is for weight-bearing as tolerated with crutches. Follow-up will be in 2 weeks for likely suture removal.
[2019-07-14 12:47] VITALS: BP 132/87
== END | disposition home or self-care (01) ==
LOC: OR 07:07
PROVIDERS: ATTEND Orthopaedic Surgery
DX: M67.51 Plica syndrome, right knee (principal); M22.41 Chondromalacia patellae, right knee; M65.861 Other synovitis and tenosynovitis, right lower leg; M25.561 Pain in right knee; F17.210 Nicotine dependence, cigarettes, uncomplicated; F32.9 Major depressive disorder, single episode, unspecified
CPT/HCPCS: 81025; A9270-GY; J1885; J2250; J3010; J3490

== ENCOUNTER 2019-09-16 19:38 | Emergency (ER) | payer MEDICAID, OTHER ==
--- OUTSIDE RECORDS SUMMARY | 2019-09-16 19:44 | XMS REPORT | Continuity of Care Document ---
:1990 External Reference #:[id number] Demographics Address [address] [place] [address] Mobile Phone [phone] Email Address Preferred Language en Marital Status Not or Mosque Affiliation Unknown Race White Ethnic Group Not or Author Name ELVER Calix (transmitted by agent of provider Bee Hayden) Address [address] [place] [address] Care Team Providers Name Role Phone Patient's Choice Care Team Information Patient Registrar Unavailable Problems Active Problems Provider Date Plica syndrome, right knee Camilo Jerry MD Onset: 06/12/2019 Chondromalacia of patella Camilo Jerry MD Onset: 06/12/2019 Social History Type Date Description Comments Sex Unknown ETOH Use Occasionally consumes alcohol Tobacco Use Start: Unknown Patient is a current smoker, smokes every day Smoking Status Reviewed: 07/29/19 Patient is a current smoker, smokes every day Exercise Type/Frequency Exercises sporadically Allergies, Adverse Reactions, Alerts Active Allergies Reaction Severity Comments Date Penicillins 10/30/2017 Medications Active Medications SIG Qnty Indications Ordering Provider Date Aspirin Adult take one tab once 14tabs Camilo Jerry MD 07/14/2019 325mg a day for 2 weeks Tablets Tylenol 2 tablets every 4 Unknown 325mg Capsules hours as needed for pain Sertraline HCL Take 1 Tablet By Unknown 50mg Mouth Every Day Tablets Naproxen Take 1 Tablet By Unknown 500mg Tablets Mouth Twice A Day as Needed For Pain With Food Hydroxyzine HCL Take 1/2 To 1 Tab Unknown 25mg By Mouth as Tablets Needed For Anxiety And Take 1 To 2 Tabs AT Bedtime as Needed For Sleep History Medications Oxycodone HCL 1 tabs by mouth 5caps Camilo Jerry MD 07/14/2019 - 5mg every 6 hours as 07/28/2019 Capsules needed pain Medications Administered in Office Medication SIG Qnty Indications Ordering Provider Date Depomedrol 40MG Bee Gifford, M.D. 12/23/2017 Injection Depomedrol 40MG Bee Gifford M.D. 12/23/2017 Injection Immunizations Description No Information Available Vital Signs Date Vital Result Comment 07/29/2019 2:26pm Height 67 inches 5'7" Weight 209.00 lb Heart Rate 72 /min BP Systolic 122 mmHg BP Diastolic 84 mmHg Respiratory Rate 12 /min Body Temperature 97.7 F Pain Level 3 BMI (Body Mass Index) 32.7 kg/m2 07/03/2019 10:36am Height 67.75 inches 5'7.75" Weight 205.25 lb Heart Rate 66 /min BP Systolic 128 mmHg BP Diastolic 78 mmHg Respiratory Rate 14 /min Body Temperature 97.8 F Pain Level 8 BMI (Body Mass Index) 31.4 kg/m2 Results Description No Information Available Procedures Date Code Description Status 07/14/2019 76888 Arthroscopy,Knee, Synovectomy Plica Or Shelf Resect Completed 07/14/2019 07209 Arthroscopy,Knee, Synovectomy Plica Or Shelf Resect Completed Medical Devices Description No Information Available Encounters Type Date Location Provider Dx Diagnosis Office Visit 06/12/2019 [facility] Rosalino, M67.51 Plica syndrome, 10:30a at [facility] right knee M22.41 Chondromalacia patellae, right knee Office Visit 05/07/2019 Izzy Espinoza M22.2x1 [facility]oral 9:30a [facility] disorders, right Eleuterio knee Office Visit 04/20/2019 Izzy Espinoza M22.2x1 Patellofemoral 9:15a [facility] disorders, right [place] knee M25.361 Other instability, right knee Office Visit 02/16/2019 Izzy Espinoza M22.2x1 Patellofemoral 3:00p [facility] disorders, right Eleuterio knee M25.361 Other instability, right knee Assessments Date Code Description Provider 07/29/2019 M67.51 Plica syndrome, right knee ELVER Calix 07/29/2019 M22.41 Chondromalacia patellae, right knee ELVER Calix 07/14/2019 M67.51 Plica syndrome, right knee MAYCO Shannon 07/14/2019 M67.51 Plica syndrome, right knee Camilo Jerry MD 07/03/2019 M67.51 Plica syndrome, right knee Camilo Jerry MD 07/03/2019 M22.41 Chondromalacia patellae, right knee Camilo Jerry MD 06/12/2019 M67.51 Plica syndrome, right knee Camilo Jerry MD 06/12/2019 M22.41 Chondromalacia patellae, right knee Camilo Jerry MD 05/07/2019 M22.2x1 Patellofemoral disorders, right knee López Mccollum MD 04/20/2019 M22.2x1 Patellofemoral disorders, right knee López Mccollum MD 04/20/2019 M25.361 Other instability, right knee López Mccollum MD 02/16/2019 M22.2x1 Patellofemoral disorders, right knee López Mccollum MD 02/16/2019 M25.361 Other instability, right knee López Mccollum MD Plan of Treatment Future Appointment(s):08/19/2019 1:45 pm - Camilo Jerry MD at [facility] at [place]/29/2019 - Heidi Babin RPA-CM67.51 Plica syndrome, right kneeNew Therapy:Physical TherapyFollow up:3 nfzstE01.41 Chondromalacia patellae, right knee Functional Status Description No Information Available Mental Status Description No Information Available Referrals Description No Information Available
[2019-09-16 20:06] VITALS: BP 132/79
--- NOTE | 2019-09-16 20:43 | UC ---
Ear Complaint HPI - HPI Summary HPI Summary: 28 yo female has had left ear pain x 2 days when she yawns the left ear crackles (like driving up a hill) when she lays down her ear hurts mild nasal congestion no fever no decreased hearing no pain with chewing does not grind her teeth - History of Current Complaint Chief Complaint: UCRespiratory Stated Complaint: LEFT EAR/JAW PAIN Time Seen by Provider: 09/16/19 20:25 Hx Last Menstrual Period: 08/19/19 ?: Yes Onset/Duration: Gradual Onset Severity Initially: Moderate Severity Currently: None Pain Intensity: 6 - at max Pain Scale Used: 0-10 Numeric Aggravating Factors: Other - yawning/supine position - Allergies/Home Medications Allergies/Adverse Reactions: Allergies Allergy/AdvReac Type Severity Reaction Status Date / Time Penicillins Allergy Hives Verified 09/16/19 20:01 Home Medications: Home Medications Sertraline* [Zoloft*] 50 mg PO QAM 07/03/19 [History Confirmed 09/16/19] predniSONE 20 mg TAB [Deltasone 20 MG TAB*] 40 mg PO DAILY #13 tab 09/16/19 [Rx] traZODone TAB* [Desyrel TAB*] 1 tab DAILY 09/16/19 [History Confirmed 09/16/19] PMH/Surg Hx/FS Hx/Imm Hx Previously Healthy: Yes - Surgical History Surgical History: Yes Surgery Procedure, Year, and Place: essure-RAPHAEL - SAFE OR COND 6 ( SEE MRISAFETY FOR EXACT COND 6 SCANNING RECOMMENDATIONS UP TO 3T). CARPAL TUNNEL RELEASE for right hand. RIGHT knee - Family History Known Family History: Positive: Hypertension, Other - positive for FMH for arthralgia, Non-Contributory Family History: no known cardio-vascular issues in family - Social History Alcohol Use: Occasionally Substance Use Type: None Substance Use Comment - Amount & Last Used: occasional Smoking Status (MU): Heavy Every Day Tobacco Smoker Type: Cigarettes Amount Used/How Often: 1/2 ppd X 3-4 YEARS OFF AND ON Have You Smoked in the Last Year: Yes - Immunization History Most Recent Influenza Vaccination: Not the 2017/2017 Season Hx Tetanus, Diphtheria Vaccination: Yes Vaccination Up to Date: Yes Review of Systems All Other Systems Reviewed And Are Negative: Yes Constitutional: Positive: Negative Skin: Positive: Negative Eyes: Positive: Negative ENT: Positive: Ear Ache Respiratory: Positive: Negative Cardiovascular: Positive: Negative Gastrointestinal: Positive: Negative Genitourinary: Positive: Negative Motor: Positive: Negative Neurovascular: Positive: Negative Musculoskeletal: Positive: Negative Neurological/Mental Status: Positive: Negative Psychological: Positive: Negative Physical Exam Triage Information Reviewed: Yes Appearance: Well-Appearing, No Pain Distress, Well-Nourished Vital Signs: Initial Vital Signs Temp 97.7 F 09/16/19 20:02 Pulse 70 09/16/19 20:02 Resp 16 09/16/19 20:02 BP 132/79 09/16/19 20:02 Pulse Ox 100 09/16/19 20:02 Vital Signs Reviewed: Yes Eyes: Positive: Conjunctiva Clear ENT: Positive: Hearing grossly normal, TMs normal, Uvula midline. Negative: Nasal congestion, Nasal drainage, Tonsillar swelling, Tonsillar exudate, Trismus , Muffled voice, Hoarse voice, Dental tenderness, Sinus tenderness Dental Exam: Normal Neck: Positive: Supple, Nontender, No Lymphadenopathy Respiratory: Positive: Lungs clear, Normal breath sounds, No respiratory distress Cardiovascular: Positive: RRR, No Murmur Musculoskeletal: Positive: ROM Intact, No Edema Neurological: Positive: Alert Psychological Exam: Normal Skin Exam: Normal Ear Complaint Course/Dx - Differential Dx/Diagnosis Provider Diagnosis: Acute dysfunction of left eustachian tube Discharge ED - Sign-Out/Discharge Documenting (check all that apply): Patient Departure All imaging exams completed and their final reports reviewed: No Studies - Discharge Plan Condition: Stable Disposition: HOME Prescriptions: predniSONE 20 mg TAB [Deltasone 20 MG TAB*] 40 mg PO DAILY #13 tab Patient Education Materials: Serous Otitis Media (ED) Referrals: Shon Winston MD [Primary Care Provider] - 7 Days (if not better) - Billing Disposition and Condition Condition: STABLE Disposition: Home
== END 2019-09-16 20:51 | disposition home or self-care (01) ==
LOC: UCCORT 19:38
DX: H69.82 Other specified disorders of Eustachian tube, left ear (principal); F17.210 Nicotine dependence, cigarettes, uncomplicated; Z88.0 Allergy status to penicillin
CPT/HCPCS: 99212; G0463; J7512

== ENCOUNTER 2019-09-22 16:24 | Emergency (ER) | payer OTHER ==
[2019-09-22 17:39] VITALS: BP 123/85
--- NOTE | 2019-09-22 18:46 | UC ---
Ear Complaint HPI - HPI Summary HPI Summary: left TMJ pain with chewing x 2-3 days has been moving jaw side to side to clear her left ear (ERIN) no swelling no fever - History of Current Complaint Chief Complaint: UCGeneralIllness Stated Complaint: JAW COMPLAINT Time Seen by Provider: 09/22/19 18:39 Hx Obtained From: Patient Hx Last Menstrual Period: september 16 Onset/Duration: Gradual Onset, Lasting Days Severity Currently: Severe Pain Intensity: 9 - with chewing Pain Scale Used: 0-10 Numeric Alleviating Factors: Other (Noted In Comments) - naproxen - Allergies/Home Medications Allergies/Adverse Reactions: Allergies Allergy/AdvReac Type Severity Reaction Status Date / Time Penicillins Allergy Hives Verified 09/22/19 17:39 Home Medications: Home Medications Sertraline* [Zoloft*] 50 mg PO QAM 07/03/19 [History Confirmed 09/22/19] predniSONE 20 mg TAB [Deltasone 20 MG TAB*] 40 mg PO DAILY #13 tab 09/16/19 [Rx Confirmed 09/22/19] traZODone TAB* [Desyrel TAB*] 1 tab DAILY 09/16/19 [History Confirmed 09/22/19] PMH/Surg Hx/FS Hx/Imm Hx Previously Healthy: Yes - Surgical History Surgical History: Yes Surgery Procedure, Year, and Place: essure-RAPHAEL - SAFE OR COND 6 ( SEE MRISAFETY FOR EXACT COND 6 SCANNING RECOMMENDATIONS UP TO 3T). CARPAL TUNNEL RELEASE for right hand. RIGHT knee - Family History Known Family History: Positive: Hypertension, Other - positive for FMH for arthralgia, Non-Contributory Family History: no known cardio-vascular issues in family - Social History Alcohol Use: Occasionally Substance Use Type: None Substance Use Comment - Amount & Last Used: occasional Smoking Status (MU): Heavy Every Day Tobacco Smoker Type: Cigarettes Amount Used/How Often: 1/2 ppd X 3-4 YEARS OFF AND ON Have You Smoked in the Last Year: Yes - Immunization History Most Recent Influenza Vaccination: Not the 2016/2017 Season Hx Tetanus, Diphtheria Vaccination: Yes Vaccination Up to Date: Yes Review of Systems All Other Systems Reviewed And Are Negative: Yes Constitutional: Positive: Negative Skin: Positive: Negative Eyes: Positive: Negative ENT: Positive: Negative Respiratory: Positive: Negative Cardiovascular: Positive: Negative Gastrointestinal: Positive: Negative Genitourinary: Positive: Negative Motor: Positive: Negative Neurovascular: Positive: Negative Musculoskeletal: Positive: Negative Neurological/Mental Status: Positive: Negative Psychological: Positive: Negative Physical Exam Triage Information Reviewed: Yes Appearance: Well-Appearing, No Pain Distress, Well-Nourished Vital Signs: Initial Vital Signs Temp 97.6 F 09/22/19 17:34 Pulse 66 09/22/19 17:34 Resp 18 09/22/19 17:34 BP 123/85 09/22/19 17:34 Pulse Ox 98 09/22/19 17:34 Vital Signs Reviewed: Yes Eyes: Positive: Conjunctiva Clear ENT: Positive: TMs normal, Uvula midline. Negative: Nasal congestion, Nasal drainage, Tonsillar swelling, Tonsillar exudate, Trismus, Muffled voice, Hoarse voice, Dental tenderness, Sinus tenderness Dental: Positive: Other: - left tmj tenderness/no crepitus. Negative: Dental Fracture @, Abscess @ Neck: Positive: Supple, Nontender, No Lymphadenopathy Respiratory: Positive: Lungs clear, Normal breath sounds, No respiratory distress, No accessory muscle use Cardiovascular: Positive: RRR, No Murmur Musculoskeletal: Positive: ROM Intact, No Edema Neurological: Positive: Alert Psychological Exam: Normal Skin: Positive: Rashes Ear Complaint Course/Dx - Differential Dx/Diagnosis Provider Diagnosis: TMJ tenderness, left Discharge ED - Sign-Out/Discharge Documenting (check all that apply): Patient Departure All imaging exams completed and their final reports reviewed: No Studies - Discharge Plan Condition: Stable Disposition: HOME Patient Education Materials: Temporomandibular Disorder (ED) Referrals: Shon Winston MD [Primary Care Provider] - If Needed Additional Instructions: soft /no chew diet x 2 or more days continue naproxen ice at least twice daily contact your dentist in AM and make a follow up visit - Billing Disposition and Condition Condition: STABLE Disposition: Home
== END 2019-09-22 19:04 | disposition home or self-care (01) ==
LOC: UCCORT 16:24
DX: M26.602 Left temporomandibular joint disorder, unspecified (principal); F17.210 Nicotine dependence, cigarettes, uncomplicated; Z88.0 Allergy status to penicillin
CPT/HCPCS: 99211; G0463